=== PATIENT | female | born 1965 | race Hispanic/Latino ===

== ENCOUNTER 2020-04-06 17:07 | Emergency (ER) | payer OTHER, SELFPAY ==
[2020-04-07 14:45] LABS: SARS-CoV-2 MS2 Positive; SARS-CoV-2 N Gene Positive; SARS-CoV-2 S Gene Positive; SARS-CoV-2 orf1ab Positive
== END 2020-04-06 17:50 | disposition home or self-care (01) ==
LOC: ERS 17:07
DX: U07.1 COVID-19 (principal)
CPT/HCPCS: 87635; 99283; U0003